=== PATIENT | female | born 1960 | race Caucasian/White ===

== ENCOUNTER 2019-04-03 09:55 | Emergency (ER) | payer BC ==
[2019-04-03] MEDS ORDERED: KETOROLAC 60 MG/2 ML VIAL IM ONE (10:10)
--- NOTE | 2019-04-03 10:10 | ER Report ---
History and Physical Time Seen By MD: 10:08 Hx. of Stated Complaint: patient was standing up from chair yesterday, heard a pop in right knee, instant pain in leg, that has gotten worse over the night and morning, patient has swelling and a small bruise on medial part of knee. patient states it feels out of place. HPI/ROS CHIEF COMPLAINT: Right knee pain HISTORY OF PRESENT ILLNESS: 58-year-old female has had bilateral knee surgeries 10 total right knee has got a prosthetic knee replacement was getting up after her legs Fossen has severe pain and swelling to her knee she did not hear a pop felt a snap she did not fall and have no trauma. Patient states that this is happening to her in the past. She is also stating that she's had need for knee drainage. Patient is from out of town and is requiring crutches for ambulatory support patient has no additional complaints at this time pain is localized to the knee on the right hand side pain with full extension and flexion REVIEW OF SYSTEMS: Respiratory: No cough, no dyspnea. Cardiovascular: No chest pain, no palpitations. Gastrointestinal: No vomiting, no abdominal pain. 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 Cardiac: Regular rate and rhythm [ ] Right knee examination patient is significant edema and swelling no signs of cellulitic changes and around the knee neurovascularly intact unable to obtain full extension unable to obtain full flexion pain with ambulatory support DIFFERENTIAL DIAGNOSIS: After history and physical exam differential diagnosis was considered for knee effusion knee dislocation and fracture knee sprain septic joint Medical Decision Making ED Course/Re-evaluation ED Course 58-year-old female multiple surgeries bilaterally her right knee comes in swallowing and sore and tender knee immobilizer was placed and crutches v entilatory support x-rays performed OF fractures dislocation she does have a good anatomic position and alignment of her and for plasty there is no evidence again of fractures other some soft tissue swelling anteriorly suggesting some fluids suprapatella bursa posterior fossa but not enough to drain I will have her follow-up with her own orthopedic doctor when she related locates back to [place] Decision to Disposition Date: April 03, 2019 Decision to Disposition Time: 10:55 Depart Departure Latest Vital Signs Vital Signs Date Time Temp Pulse Resp B/P (MAP) Pulse Ox O2 Delivery O2 Flow Rate FiO2 04/03/19 10:30 158/97 (117) 04/03/19 10:10 98 88 04/03/19 10:01 98.1 16 Room Air Impression: Primary Impression: Knee pain Condition: Improved Disposition: HOME OR SELF-CARE Patient Instructions: Knee Pain (ED) JAKI JEONG MD April 03, 2019 10:10
[2019-04-03] MEDS ORDERED: ESTR50GE2 TD (10:28)
[2019-04-03] MEDS ORDERED: LORA1TAB69 PO (10:28)
[2019-04-03] MEDS ORDERED: TRIA10.8 ENA (10:28)
[2019-04-03 10:30] VITALS: BP 158/97
--- NOTE | 2019-04-03 10:53 | RADIOLOGY IMAGING REPORT ---
FAC[place] [facility] [place]IENT NAME: Radha Dle Toro : 1960 MR: [id number] V: [id number] EXAM DATE: ORDERING PHYSICIAN: JAKI JEONG TECHNOLOGIST: Location: [facility] - [place] Patient: Radha Del Toro : 1960 Visit/Account:[id number] Date of Sevice: 04/03/2019 Exam type: KNEE 3 VIEW RIGHT History: pain Comparison: None. Findings three views submitted: There is a right knee arthroplasty that appears in good anatomic alignment. There is no evidence of acute fracture or dislocation. There is soft tissue swelling noted anteriorly and suggestion of flui d in the suprapatellar bursa and posterior fossa. Calcifications in the popliteal fossa are likely v ascular in etiology IMPRESSION: 1. No evidence of acute fracture dislocation Right knee arthroplasty appears in good anatomic alignment There is soft tissue swelling anteriorly and suggestion of a joint effusion Report Dictated By: Marjorie Hale MD at 04/03/2019 10:47 AM Report E-Signed By: Marjorie Hale MD at 04/03/2019 10:48 AM WSN:[id number]
== END 2019-04-03 11:09 | disposition home or self-care (01) ==
LOC: ER 10:00
DX: M25.561 Pain in right knee (principal); Z96.651 Presence of right artificial knee joint; Z79.899 Other long term (current) drug therapy
CPT/HCPCS: 73562; 96372; 99283; J1885; L1830